=== PATIENT | female | born 1970 | race Caucasian/White ===

== ENCOUNTER 2017-06-27 16:55 | Observation (INO) | payer OTHER ==
[~2017-06-27] VITALS: Ht 157.5 cm; Wt 68.0 kg
[2017-06-27 17:24] VITALS: BP 158/81; PULSE 100; RESP 17; TEMP 98; O2SAT 99
[2017-06-27 18:29] VITALS: O2SAT 98
[2017-06-27] MEDS ORDERED: SODIUM CHLORIDE 0.9% FLUSH 10 ML FLUSH IVF PRN (18:30)
--- NOTE | 2017-06-27 18:42 | PD ---
HPI Chief Complaint: Seizure Time Seen by Provider: 17:54 Travel History International Travel<30 days: No Contact w/Intl Traveler<30days: No Traveled to known affect area: No History of Present Illness HPI This is a 47-year-old female with history of hypertension, presents today with complaints of seizure/new onset. The patient apparently was at the shopping center when she developed a episode of feeling funny. Her mom states that they helped her down to the floor and she started having a generalized tonic-clonic seizure. She did bite her tongue. There is no incontinence. It lasted for what they report up to a minute. There is no previous history of seizure disorder. There is no recent trauma. There is a recent medication changes. The patient reports that she was scheduled to see her primary care doctor for hypertension. There are no other complaints or findings at the time of this dictation. PFSH Past Medical History ?: Not Past Surgical History Hysterectomy: Yes Social History Tobacco Use: No Allergies-Medications (Allergen,Severity, Reaction): Coded Allergies: No Known Allergies (Unverified , 06/27/17) Reported Meds & Prescriptions Reported Meds & Active Scripts Active No Active Prescriptions or Reported Medications Review of Systems Except as stated in HPI: all other systems reviewed are Neg General / Constitutional: No: Fever, Chills HENT: Positive: Other (F lateral anterior tongue laceration from the seizure), No: Headaches, Lightheadedness Cardiovascular: No: Chest Pain or Discomfort, Palpitations Respiratory: No: Cough, Shortness of Breath Gastrointestinal: No: Nausea, Vomiting, Abdominal Pain Genitourinary: No: Dysuria, Incontinence Musculoskeletal: No: Weakness, Pain Neurologic: Positive: Seizures, No: Weakness, Dizziness, Syncope, Headache Physical Exam Narrative GENERAL: Well developed well-nourished female in no acute respiratory distress. SKIN: Focused skin assessment warm/dry. HEAD: Atraumatic. Normocephalic. EYES: No scleral icterus. No injection or drainage. ENT: No nasal bleeding or discharge. Mucous membranes pink and moist. She does have a tongue laceration to her left lateral tongue. NECK: Trachea midline. No JVD. CARDIOVASCULAR: Regular rate and rhythm. No murmur appreciated. RESPIRATORY: No accessory muscle use. Clear to auscultation. Breath sounds equal bilaterally. GASTROINTESTINAL: Abdomen soft, non-tender, nondistended. Hepatic and splenic margins not palpable. MUSCULOSKELETAL: No obvious deformities. No clubbing. No cyanosis. No edema. NEUROLOGICAL: Awake and alert. No obvious cranial nerve deficits. Motor grossly within normal limits. Normal speech. PSYCHIATRIC: Appropriate mood and affect; insight and judgment normal. Data Data Last Documented VS Vital Signs Date Time Temp Pulse Resp B/P (MAP) Pulse Ox O2 Delivery O2 Flow Rate FiO2 06/27/17 19:12 79 16 159/85 (109) 99 Room Air 06/27/17 17:24 98.0 Orders Orders Drug Screen, Random Urine (06/27/17 18:25) Electrocardiogram (06/27/17 ) Ct Brain W/O Iv Contrast(Rout) (06/27/17 ) Blood Glucose (06/27/17 18:25) Ecg Monitoring (06/27/17 18:25) Iv Access Insert/Monitor (06/27/17 18:25) Oximetry (06/27/17 18:25) Comprehensive Metabolic Panel (06/27/17 18:25) Sodium Chloride 0.9% Flush (Ns Flush) (06/27/17 18:30) Ua Includes Microscopic (06/27/17 18:25) Labs Laboratory Tests Test 06/27/17 18:30 06/27/17 18:35 Urine Color YELLOW Urine Turbidity CLEAR Urine pH 5.0 Urine Specific [place] 1.021 Urine Protein TRACE mg/dL Urine Glucose (UA) NEG mg/dL Urine Ketones TRACE mg/dL Urine Occult Blood NEG Urine Nitrite NEG Urine Bilirubin NEG Urine Urobilinogen LESS THAN 2.0 MG/DL Urine Leukocyte Esterase NEG Urine WBC 1 /hpf Urine Squamous Epithelial Cells <1 /hpf Urine Hyaline Casts 1 /lpf Urine Mucus FEW /lpf Urine Opiates Screen NEG Urine Barbiturates Screen NEG Urine Amphetamines Screen NEG Urine Benzodiazepines Screen NEG Urine Cocaine Screen NEG Urine Cannabinoids Screen NEG MDM Medical Decision Making Medical Screen Exam Complete: Yes Emergency Medical Condition: Yes Differential Diagnosis New onset seizure versus atypical migraine versus metabolic derangement. Narrative Course 47-year-old female presents after having a witnessed tonic-clonic seizure. The patient was at this store when she started feeling funny and was helped onto the floor. She'll witnessed tonoclonic seizure. There is no incontinence. There was tongue biting. The patient has no previous seizure history prior to this. She has had one syncopal episode. She has a history of hypertension and is currently not on any medications. Her blood pressure here was on the high normal site however not toxically high. The patient has no focal deficits at this time. Labs and CT are pending this time. She'll be signed out to Dr. Anam Chawla, physician replacing me at change of shift. Disposition will be pending results. I informed her and her that she would be admitted. She'll have a neurology consult. Diagnosis Primary Impression: New onset seizure Scripts No Active Prescriptions or Reported Meds Tyrese العلي MD Jun 27, 2017 18:42
[2017-06-27 19:10] LABS: BILIRUBIN, URINE NEG (NEG); BLOOD, URINE NEG (NEG); GLUCOSE,URINE NEG (NEG); HYALINE CAST, URINE 1 /lpf (RARE); KETONE, URINE TRACE mg/dL (NEG); MUCUS URINE FEW /lpf (OCC); NITRITE,URINE NEG (NEG); SQUAMOUS EPITHELIAL CELL URINE <1 /hpf (0-5); URINE COLOR YELLOW (YELLW/STRAW); URINE LEUKOCYTE ESTERASE NEG (NEG)
[2017-06-27 19:12] VITALS: BP 159/85; PULSE 79; RESP 16; O2SAT 99
[2017-06-27 19:27] LABS: ALBUMIN 3.8 GM/DL (3.4-5.0); ALT (GPT) 24 U/L (10-53); AST (GOT) 22 U/L (15-37); BICARBONATE 24.7 MEQ/L (21.0-32.0); BLOOD UREA NITROGEN 13 MG/DL (7-18); CALCIUM 8.6 MG/DL (8.5-10.1); CHLORIDE 103 MEQ/L (98-107); CREATININE 0.69 MG/DL (0.50-1.00); GLOMERULAR FILTRATION RATE 91 ML/MIN (>89); GLUCOSE,RANDOM 109 MG/DL (74-106); SODIUM (NA) 137 MEQ/L (136-145)
[2017-06-27 19:30] LABS: ALKALINE PHOSPHATASE 73 U/L (45-117); TOTAL BILIRUBIN ADULT 0.3 MG/DL (0.2-1.0)
--- NOTE | 2017-06-27 19:51 | RADRPT ---
EXAM DATE/TIME: 06/27/2017 18:54 [facility] COMPARISON: No previous studies available for comparison. INDICATIONS : Seizure today. RADIATION DOSE: 56.35 CTDIvol (mGy) MEDICAL HISTORY : None SURGICAL HISTORY : Hysterectomy. ENCOUNTER: Initial ACUITY: 1 day PAIN SCALE: 5/10 LOCATION: cranial TECHNIQUE: Multiple contiguous axial images were obtained of the head. Using automated exposure control and adj ustment of the mA and/or kV according to patient size, radiation dose was kept as low as reasonably a chievable to obtain optimal diagnostic quality images. DICOM format image data is available electro nically for review and comparison. FINDINGS: CEREBRUM: The ventricles are normal for age. No evidence of midline shift, mass lesion, hemorrhage or acute in farction. No extra-axial fluid collections are seen. POSTERIOR FOSSA: The cerebellum and brainstem are intact. The 4th ventricle is midline. The cerebellopontine angle i s unremarkable. EXTRACRANIAL: The visualized portion of the orbits is intact. SKULL: The calvaria is intact. No evidence of skull fracture. CONCLUSION: 1. No acute intracranial abnormality. Teja Ramsey MD on June 27, 2017 at 19:48 Board Certified Radiologist. This report was verified electronically.
--- NOTE | 2017-06-27 21:14 | HHI.HP ---
HPI Service [facility] Hospitalists Primary Care Physician Non-Staff Admission Diagnosis seizures Chief Complaint: Seizure, new onset Travel History International Travel<30 Days: No Contact w/Intl Traveler <30 Da: No Traveled to Known Affected Are: No History of Present Illness This is a 47-year-old female with history of hypertension, presents today with complaints of seizure/new onset. The patient apparently was at the shopping center with her mother and young daughter when she developed a episode of feeling funny. Her mom states that they helped her down to the floor and she started having a generalized tonic-clonic seizure. She did bite her tongue. There was no incontinence. It lasted for what they report was up to a minute. There is no previous history of seizure disorder. There is no recent trauma. There is a recent medication changes. The patient reports that she was scheduled to see her primary care doctor for hypertension. There are no other complaints or findings at the time of this dictation. She reports that she was confused about what happened but hard and remembering things and being able to focus when she was in the ambulance. Not remember having the seizure or being transported to the ambulance. She had a neck injury October 20 years ago but no recent head injuries. He never had seizures or similar tremor disorder in the past. No fevers or chills. No rash. No unusual herbal, a medicine intake. She does report that she had had some atypical type chest pain over the last couple of months. She has had EKG and some at least partial workup for this as an outpatient. Was told that it was reflux and it does improve with Zantac. Review of Systems Constitutional: COMPLAINS OF: Fatigue, DENIES: Diaphoretic episodes, Fever, Weight gain, Weight loss, Chills, Dizziness, Change in appetite, Night Sweats Endocrine: DENIES: Abnorml menstrual pattern, Heat/cold intolerance, Polydipsia , Polyuria, Polyphagia Eyes: DENIES: Blurred vision, Diplopia, Eye inflammation, Eye pain, Vision loss , Photosensitivity, Double Vision Ears, nose, mouth, throat: DENIES: Tinnitus, Hearing loss, Vertigo, Nasal discharge, Oral lesions, Throat pain, Hoarseness, Ear Pain, Running Nose, Epistaxis, Sinus Pain, Toothache, Odynophagia Respiratory: DENIES: Apneas, Cough, Snoring, Wheezing, Hemoptysis, Sputum production, Shortness of breath Cardiovascular: COMPLAINS OF: Chest pain, DENIES: Palpitations, Syncope, Dyspnea on Exertion, PND, Lower Extremity Edema, Orthopnea, Claudication Gastrointestinal: COMPLAINS OF: GERD, Reflux, DENIES: Abdominal pain, Black stools, Bloody stools, BRB per rectum, Constipation, Diarrhea, Nausea, Vomiting , Difficulty Swallowing, Anorexia, See HPI Musculoskeletal: DENIES: Joint pain, Muscle aches, Stiffness, Joint Swelling, Back pain, Neck pain Integumentary: DENIES: Abnormal pigmentation, Pruritus, Rash, Nail changes, Breast masses, Breast skin changes, Nipple discharge Hematologic/lymphatic: DENIES: Bruising, Lymphadenopathy Immunologic/allergic: DENIES: Eczema, Urticaria Neurologic: COMPLAINS OF: Seizures, DENIES: Abnormal gait, Headache, Localized weakness, Paresthesias, Speech Problems, Tremor, Poor Balance Psychiatric: DENIES: Anxiety, Confusion, Mood changes, Depression, Hallucinations, Agitation, Suicidal Ideation, Homicidal Ideation, Delusions, History of Bipolar, History of Schizophrenia Past Family Social History Past Medical History Hypertension Distant history of neck injury History of placenta accreta 2. Past Surgical History 2 Hysterectomy Tonsillectomy and adenoidectomy C5/6 cervical fusion approximately 25 years ago Reported Medications None regularly Allergies: Coded Allergies: No Known Allergies (Unverified , 06/27/17) Family History No seizure disorder or history of movement disorder Social History Denies tobacco use. 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 SKIN: Abrasion right elbow with tenderness to palpation and mild edema HEAD: Atraumatic. Normocephalic. No temporal or scalp tenderness. EYES: Pupils equal round and reactive. Extraocular motions intact. No scleral icterus. No injection or drainage. ENT: Nose without bleeding, purulent drainage or septal hematoma. Airway patent. NECK: Trachea midline. No JVD or lymphadenopathy. Supple, nontender, no meningeal signs. CARDIOVASCULAR: Regular rate and rhythm without murmurs, gallops, or rubs. RESPIRATORY: Clear to auscultation. Breath sounds equal bilaterally. No wheezes , rales, or rhonchi. GASTROINTESTINAL: Abdomen soft, non-tender, nondistended. No hepato-splenomegaly , or palpable masses. No guarding. Bowel sounds normal. MUSCULOSKELETAL: Extremities without clubbing, cyanosis, or edema. Right elbow with mild edema and apparent abrasion with good range of motion. No calf tenderness. NEUROLOGICAL: Awake and alert. Cranial nerves II through XII intact. Motor and sensory grossly within normal limits. Five out of 5 muscle strength in all muscle groups. Normal speech. Laboratory Laboratory Tests Test 06/27/17 18:30 06/27/17 18:35 Blood Urea Nitrogen 13 Creatinine 0.69 Random Glucose 109 Total Protein 7.0 Albumin 3.8 Calcium Level 8.6 Alkaline Phosphatase 73 Aspartate Amino Transf (AST/SGOT) 22 Alanine Aminotransferase (ALT/SGPT) 24 Total Bilirubin 0.3 Sodium Level 137 Potassium Level 3.4 Chloride Level 103 Carbon Dioxide Level 24.7 Anion Gap 9 Estimat Glomerular Filtration Rate 91 Urine Color YELLOW Urine Turbidity CLEAR Urine pH 5.0 Urine Specific [place] 1.021 Urine Protein TRACE Urine Glucose (UA) NEG Urine Ketones TRACE Urine Occult Blood NEG Urine Nitrite NEG Urine Bilirubin NEG Urine Urobilinogen LESS THAN 2.0 Urine Leukocyte Esterase NEG Urine WBC 1 Urine Squamous Epithelial Cells <1 Urine Hyaline Casts 1 Urine Mucus FEW Urine Opiates Screen NEG Urine Barbiturates Screen NEG Urine Amphetamines Screen NEG Urine Benzodiazepines Screen NEG Urine Cocaine Screen NEG Urine Cannabinoids Screen NEG Result Diagram: 06/27/17 1830 Imaging Last [address] 06/27/17 0000 Signed Impressions: Service Date/Time: Tuesday, June 27, 2017 18:54 - CONCLUSION: 1. No acute intracranial abnormality. MD Dean Gregg VTE Risk Assessment Dean VTE Risk Assessment: No/Low Risk (score <= 1) Caprini Risk Assessment Model Point Value = 1 Point Value = 2 Point Value = 3 Point Value = 5 Age 41-60 Minor surgery BMI > 25 kg/m2 Swollen legs Varicose veins or History of unexplained or recurrent spontaneous Oral contraceptives or hormone replacement Sepsis (< 1 month) Serious lung disease, including pneumonia (< 1 month) Abnormal pulmonary function Acute myocardial infarction Congestive heart failure (< 1 month) History of inflammatory bowel disease Medical patient at bed rest Age 61-74 Arthroscopic surgery Major open surgery (> 45 min) Laparoscopic surgery (> 45 min) Malignancy Confined to bed (> 72 hours) Immobilizing plaster cast Central venous access Age >= 75 History of VTE Family history of VTE Factor V Leiden Prothrombin [id number] Lupus anticoagulant Anticardiolipin antibodies Elevated serum homocysteine Heparin-induced thrombocytopenia Other congenital or acquired thrombophilia Stroke (< 1 month) Elective arthroplasty Hip, pelvis, or leg fracture Acute spinal cord injury (< 1 month) Prophylaxis Regimen Total Risk Factor Score Risk Level Prophylaxis Regimen 0-1 Low Early ambulation 2 Moderate Order ONE of the following: *Sequential Compression Device (SCD) *Heparin 5000 units SQ BID 3-4 Higher Order ONE of the following medications: *Heparin 5000 units SQ TID *Enoxaparin/Lovenox 40 mg SQ daily (WT < 150 kg, CrCl > 30 mL/min) *Enoxaparin/Lovenox 30 mg SQ daily (WT < 150 kg, CrCl > 10-29 mL/min) *Enoxaparin/Lovenox 30 mg SQ BID (WT < 150 kg, CrCl > 30 mL/min) AND/OR *Sequential Compression Device (SCD) 5 or more Highest Order ONE of the following medications: *Heparin 5000 units SQ TID (Preferred with Epidurals) *Enoxaparin/Lovenox 40 mg SQ daily (WT < 150 kg, CrCl > 30 mL/min) *Enoxaparin/Lovenox 30 mg SQ daily (WT < 150 kg, CrCl > 10-29 mL/min) *Enoxaparin/Lovenox 30 mg SQ BID (WT < 150 kg, CrCl > 30 mL/min) AND *Sequential Compression Device (SCD) Assessment and Plan Problem List: (1) New onset seizure ICD Codes: R56.9 - Unspecified convulsions Status: Acute Plan: Will order EEG and MRI. Neuro consult. Check x-ray right elbow given tenderness, abrasion and likely trauma during her seizure. (2) Hypertension ICD Codes: I10 - Essential (primary) hypertension Status: Chronic Plan: Has been trying to manage with diet. May need meds in the future. Outpatient management. Code Status full Discussed Condition With Patient and ER provider Problem Qualifiers (1) Hypertension: Qualified Codes: I10 - Essential (primary) hypertension Reese Castro MD PhD Jun 27, 2017 21:14
[2017-06-27] MEDS ORDERED: SODIUM CHLORIDE 0.9% FLUSH 10 ML FLUSH IV FLUSH PRN (21:15)
[2017-06-27] MEDS ORDERED: ONDANSETRON HCL 4 MG/2 ML VIAL IV PUSH PRN (21:15)
--- NOTE | 2017-06-27 21:57 | PD ---
Data Data Last Documented VS Vital Signs Date Time Temp Pulse Resp B/P (MAP) Pulse Ox O2 Delivery O2 Flow Rate FiO2 06/27/17 19:12 79 16 159/85 (109) 99 Room Air 06/27/17 17:24 98.0 Orders Orders Drug Screen, Random Urine (06/27/17 18:25) Electrocardiogram (06/27/17 ) Ct Brain W/O Iv Contrast(Rout) (06/27/17 ) Blood Glucose (06/27/17 18:25) Ecg Monitoring (06/27/17 18:25) Iv Access Insert/Monitor (06/27/17 18:25) Oximetry (06/27/17 18:25) Comprehensive Metabolic Panel (06/27/17 18:25) Sodium Chloride 0.9% Flush (Ns Flush) (06/27/17 18:30) Ua Includes Microscopic (06/27/17 18:25) Admit Order (Ed Use Only) (06/27/17 ) Labs Laboratory Tests Test 06/27/17 18:30 06/27/17 18:35 Blood Urea Nitrogen 13 MG/DL Creatinine 0.69 MG/DL Random Glucose 109 MG/DL Total Protein 7.0 GM/DL Albumin 3.8 GM/DL Calcium Level 8.6 MG/DL Alkaline Phosphatase 73 U/L Aspartate Amino Transf (AST/SGOT) 22 U/L Alanine Aminotransferase (ALT/SGPT) 24 U/L Total Bilirubin 0.3 MG/DL Sodium Level 137 MEQ/L Potassium Level 3.4 MEQ/L Chloride Level 103 MEQ/L Carbon Dioxide Level 24.7 MEQ/L Anion Gap 9 MEQ/L Estimat Glomerular Filtration Rate 91 ML/MIN C-Reactive Protein LESS THAN 0.29 MG/DL Urine Color YELLOW Urine Turbidity CLEAR Urine pH 5.0 Urine Specific [place] 1.021 Urine Protein TRACE mg/dL Urine Glucose (UA) NEG mg/dL Urine Ketones TRACE mg/dL Urine Occult Blood NEG Urine Nitrite NEG Urine Bilirubin NEG Urine Urobilinogen LESS THAN 2.0 MG/DL Urine Leukocyte Esterase NEG Urine WBC 1 /hpf Urine Squamous Epithelial Cells <1 /hpf Urine Hyaline Casts 1 /lpf Urine Mucus FEW /lpf Urine Opiates Screen NEG Urine Barbiturates Screen NEG Urine Amphetamines Screen NEG Urine Benzodiazepines Screen NEG Urine Cocaine Screen NEG Urine Cannabinoids Screen NEG MDM Supervised Visit with KAI: Yes Narrative Course Patient new onset seizure disorder, signed out to me by Dr. العلي. Initial workup unremarkable. Recommended for admission for further evaluation. Diagnosis Primary Impression: New onset seizure Scripts No Active Prescriptions or Reported Meds Anam Chawla MD Jun 27, 2017 21:57
--- NOTE | 2017-06-27 22:04 | RADRPT ---
EXAM DATE/TIME: 06/27/2017 21:28 [facility] COMPARISON: No previous studies available for comparison. INDICATIONS : Right elbow pain post fall today MEDICAL HISTORY : None. SURGICAL HISTORY : None. ENCOUNTER: Initial ACUITY: 1 day PAIN SCORE: 5/10 LOCATION: Right posterior elbow FINDINGS: Multiple view examination of the right elbow demonstrates no soft tissue swelling, joint effusion, or fracture. The osseous structures are in normal alignment. Bony mineralization is normal. CONCLUSION: 1. No acute fracture or dislocation. Teja Ramsey MD on June 27, 2017 at 22:02 Board Certified Radiologist. This report was verified electronically.
--- NOTE | 2017-06-27 22:13 | RADRPT ---
EXAM DATE/TIME: 06/27/2017 21:40 [facility] COMPARISON: No previous studies available for comparison. INDICATIONS : Seizures. MEDICAL HISTORY : Hypertension. SURGICAL HISTORY : Fusion, cervical. Hysterectomy. Tonsillectomy. . ENCOUNTER: Initial ACUITY: 1 day PAIN SCORE: 3/10 LOCATION: Bilateral cranial TECHNIQUE: Multiplanar, multisequence MRI of the brain was performed without contrast. FINDINGS: CEREBRUM: The ventricles are normal for age. No evidence of midline shift, mass lesion, hemorrha ge or acute infarction. No extraaxial fluid collections are seen. The pituitary gland and suprasell ar cistern are normal in configuration. Medial temporal lobes are symmetrical in appearance. WHITE MATTER: Minimal ventricular and focal right frontal white matter T2 prolongation. POSTERIOR FOSSA: The cerebellum and brainstem are intact. The 4th ventricle is midline. The cere bellopontine angle is unremarkable. The cerebellar tonsils are normal in position. DIFFUSION IMAGING: No focal areas of restricted diffusion are seen. No evidence of acute infarct ion. EXTRACRANIAL: The visualized portions of the orbits and paranasal sinuses are unremarkable. CONCLUSION: 1. Minimal periventricular and focal right frontal small vessel ischemic white matter demyelination. 2. Otherwise, unremarkable MRI examination of the brain. Teja Ramsey MD on June 27, 2017 at 22:09 Board Certified Radiologist. This report was verified electronically.
[2017-06-27 22:19] VITALS: BP 154/88; PULSE 76; RESP 18; TEMP 98.2; O2SAT 98
[2017-06-28 01:28] VITALS: BP 152/86; PULSE 67; RESP 16; TEMP 98.3; O2SAT 98
[2017-06-28 04:21] VITALS: BP 148/79; PULSE 70; RESP 16; TEMP 98.4; O2SAT 99
[2017-06-28 05:42] LABS: AUTOMATED NEUTROPHIL # 6.2 TH/MM3 (1.8-7.7); BASOPHIL % 0.3 % (0.0-2.0); EOSINOPHIL # 0.2 TH/MM3 (0-0.4); HEMATOCRIT 39.5 % (35.0-46.0); HEMOGLOBIN 12.9 GM/DL (11.6-15.3); LYMPH % 24.8 % (9.0-44.0); LYMPHOCYTE # 2.4 TH/MM3 (1.0-4.8); MEAN CELL VOLUME 92.8 FL (80.0-100.0); MEAN CORPUSCULAR HEMOGLOBIN 30.4 PG (27.0-34.0); MEAN CORPUSCULAR HGB CONC 32.8 % (32.0-36.0); MEAN PLATELET VOLUME 8.3 FL (7.0-11.0); MONO % 7.5 % (0.0-8.0); MONOCYTE # 0.7 TH/MM3 (0-0.9); NEUT % 65.4 % (16.0-70.0); PLATELET COUNT 245 TH/MM3 (150-450); RED BLOOD COUNT 4.25 MIL/MM3 (4.00-5.30); RED CELL DISTRIBUTION WIDTH 13.2 % (11.6-17.2); WHITE BLOOD COUNT 9.5 TH/MM3 (4.0-11.0)
[2017-06-28 07:49] VITALS: BP 130/76; PULSE 67; RESP 19; TEMP 98; O2SAT 99
[2017-06-28] MEDS ORDERED: SODIUM CHLORIDE 0.9% FLUSH 10 ML FLUSH IV FLUSH SCH (09:00)
[2017-06-28] MEDS ORDERED: POTASSIUM CHLORIDE 20 MEQ CONTROLLED RELEASE TAB PO ONE (09:45)
--- NOTE | 2017-06-28 10:48 | HHI.PR ---
Subjective Remarks No acute events overnight No further seizure activity Objective Vitals Vital Signs Date Time Temp Pulse Resp B/P (MAP) Pulse Ox O2 Delivery O2 Flow Rate FiO2 06/28/17 07:49 98.0 67 19 130/76 (94) 99 06/28/17 04:21 98.4 70 16 148/79 (102) 99 06/28/17 01:28 98.3 67 16 152/86 (108) 98 06/27/17 22:19 98.2 76 18 154/88 (110) 98 06/27/17 22:00 06/27/17 19:12 79 16 159/85 (109) 99 Room Air 06/27/17 18:29 98 Room Air 06/27/17 17:24 98.0 100 17 158/81 (106) 99 Result Diagram: 06/28/17 0420 06/27/17 1830 Other Results Laboratory Tests Test 06/27/17 18:30 06/27/17 18:35 06/28/17 04:20 Blood Urea Nitrogen 13 MG/DL Creatinine 0.69 MG/DL Random Glucose 109 MG/DL Total Protein 7.0 GM/DL Albumin 3.8 GM/DL Calcium Level 8.6 MG/DL Alkaline Phosphatase 73 U/L Aspartate Amino Transf (AST/SGOT) 22 U/L Alanine Aminotransferase (ALT/SGPT) 24 U/L Total Bilirubin 0.3 MG/DL Sodium Level 137 MEQ/L Potassium Level 3.4 MEQ/L Chloride Level 103 MEQ/L Carbon Dioxide Level 24.7 MEQ/L Anion Gap 9 MEQ/L Estimat Glomerular Filtration Rate 91 ML/MIN C-Reactive Protein LESS THAN 0.29 MG/DL Urine Color YELLOW Urine Turbidity CLEAR Urine pH 5.0 Urine Specific [place] 1.021 Urine Protein TRACE mg/dL Urine Glucose (UA) NEG mg/dL Urine Ketones TRACE mg/dL Urine Occult Blood NEG Urine Nitrite NEG Urine Bilirubin NEG Urine Urobilinogen LESS THAN 2.0 MG/DL Urine Leukocyte Esterase NEG Urine WBC 1 /hpf Urine Squamous Epithelial Cells <1 /hpf Urine Hyaline Casts 1 /lpf Urine Mucus FEW /lpf Urine Opiates Screen NEG Urine Barbiturates Screen NEG Urine Amphetamines Screen NEG Urine Benzodiazepines Screen NEG Urine Cocaine Screen NEG Urine Cannabinoids Screen NEG White Blood Count 9.5 TH/MM3 Red Blood Count 4.25 MIL/MM3 Hemoglobin 12.9 GM/DL Hematocrit 39.5 % Mean Corpuscular Volume 92.8 FL Mean Corpuscular Hemoglobin 30.4 PG Mean Corpuscular Hemoglobin Concent 32.8 % Red Cell Distribution Width 13.2 % Platelet Count 245 TH/MM3 Mean Platelet Volume 8.3 FL Neutrophils (%) (Auto) 65.4 % Lymphocytes (%) (Auto) 24.8 % Monocytes (%) (Auto) 7.5 % Eosinophils (%) (Auto) 2.0 % Basophils (%) (Auto) 0.3 % Neutrophils # (Auto) 6.2 TH/MM3 Lymphocytes # (Auto) 2.4 TH/MM3 Monocytes # (Auto) 0.7 TH/MM3 Eosinophils # (Auto) 0.2 TH/MM3 Basophils # (Auto) 0.0 TH/MM3 CBC Comment DIFF FINAL Differential Comment Imaging Last Impressions Head CT 06/27/17 0000 Signed Impressions: Service Date/Time: Tuesday, June 27, 2017 18:54 - CONCLUSION: 1. No acute intracranial abnormality. Teja Ramsey MD Elbow X-Ray 06/27/17 0000 Signed Impressions: Service Date/Time: Tuesday, June 27, 2017 21:28 - CONCLUSION: 1. No acute fracture or dislocation. Teja Ramsey MD Brain MRI 06/27/17 0000 Signed Impressions: Service Date/Time: Tuesday, June 27, 2017 21:40 - CONCLUSION: 1. Minimal periventricular and focal right frontal small vessel ischemic white matter demyelination. 2. Otherwise, unremarkable MRI examination of the brain. Teja Ramsey MD Last [address] 06/27/17 0000 Signed Impressions: Service Date/Time: Tuesday, June 27, 2017 18:54 - CONCLUSION: 1. No acute intracranial abnormality. Teja Ramsey MD Objective Remarks General: NAD, AAOx3 Chest: CTA bilaterally Cardiac: Regular Abd: +BS, soft ND/NT Ext: No edema A/P Problem List: (1) New onset seizure ICD Codes: R56.9 - Unspecified convulsions Status: Acute Plan: - Pt is a 47 y/o female with history of hypertension, who presented to the ED after a new onset seizure. The patient apparently was at [employer] with her mother and young daughter when she developed a episode of feeling like she was going to faint and experienced tunnel vision. She sat down to the floor and family reports that she started having a generalized tonic-clonic seizure. She did bite her tongue and the sides of her cheeks. There was no incontinence. Pt was reportedly post-ictal after the seizure in the ambulance. New onset seizure - There is no previous history of seizure disorder, no recent trauma, no recent medication changes. - Pt has had cold symptoms with cough and congestion for about 1 month, she has been taking Sudafed as needed. Pt did take the Sudafed (two tablets) yesterday morning but this is not a new medication. - No fevers or chills. No rash. No herbal medicine taken. - Pt reports a remote history of being diagnosed with MS in her late 20's. She states that she was initially diagnosed with optic neuritis and was following with a neurologist in [place], [place] who diagnosed her with MS based on imaging with reported "brain lesions." She was treated with Avenox for about 8 or so years and when she moved to [place] she re-established with a Neurologist there who reviewed her previous workup and did additional testing and felt that she did not have MS and was taken off the Avenox. - MRI Brain (06/27) --> Minimal periventricular and focal right frontal small vessel ischemic white matter demyelination. Otherwise, unremarkable MRI examination of the brain. - EEG is pending - Neurology consultation is pending. - X-ray of right elbow without any noted fracture or dislocation and likely trauma during her seizure. - Await Neurology evaluation and recommendations - Seizure precautions - Supportive care HTN - Has been trying to manage with diet. - Pt may need meds in the future. - Outpatient management. (2) Hypertension ICD Codes: I10 - Essential (primary) hypertension Status: Chronic Assessment and Plan Patient examined. Assessment and plan formulated with Peggy Pham PA-C. I agree with the above. sound like new seizure with post ictal state. considered convulsive syncope but pt did have post ictal phase doing ok Has had persistent sinus congestion and drainage for over a month. not improving. some bloody nasal d/c. will give short abx course and nasal sprays for possible sinusitis...pt agrees.. I reviewed ct/mri sinusimages which looked ok. await neurology consult and d/c when ok. Problem Qualifiers (1) Hypertension: Qualified Codes: I10 - Essential (primary) hypertension Peggy Pham Jun 28, 2017 10:48 Rubens Oviedo MD Jun 28, 2017 14:03
--- NOTE | 2017-06-28 14:43 | MG ---
cc: CHIQUI MORALEZ M.D. Lab No: [id number] Date: 06/28/2017 Age: 47 Sex: F Race: DATE OF : [address] Castro. Room F67. Hyperventilation and photic done, awake, drowsy asleep study. MRI shows minimal periventricular and focal right frontal small vessel disease. Admitted for new-onset seizures, episode of feeling funny, history of hypertension, alcohol use, fatigue, on Zofran. DESCRIPTION OF RECORD The patient has a background rhythm of 8, 8-1/2 Hz, 20-40 microvolts, symmetrical. Photic stimulation elicits a posterior driving response. Overall fairly well-organized background. Hyperventilation was then performed, some artifact but overall there is no attenuation, background remains symmetrical. Normal alpha rhythm. IMPRESSION Overall normal-appearing EEG without any epileptic activity noted in this one recording with epilepsy still a consideration, prolonged EEG monitoring may be indicated as outpatient. MD REJI Woodruff/HUANG /1:13 PM /2:20 PM
[2017-06-28] MEDS ORDERED: Amoxicil-Clavulanate PO (15:27)
--- NOTE | 2017-06-28 15:27 | HHI.DCPOC ---
Discharge Care Plan Diagnosis: (1) New onset seizure Goals to Promote Your Health * To prevent worsening of your condition and complications * To maintain your health at the optimal level Directions to Meet Your Goals Take your medications as prescribed Follow your dietary instruction Follow activity as directed Keep your appointments as scheduled Take your immunizations and boosters as scheduled If your symptoms worsen call your PCP, if no PCP go to Urgent Care Center or Emergency Room Smoking is Dangerous to Your Health. Avoid second hand smoke Call the 24-hour hour crisis hotline for domestic abuse at Rubens Oviedo MD Jun 28, 2017 15:27
[2017-06-28] MEDS ORDERED: AMOXICILLIN/CLAVULANATE K 500 MG TAB PO SCH (15:30)
--- NOTE | 2017-06-28 16:33 | MB ---
cc: ANGELA LAN DATE OF CONSULTATION: 06/28/2017 REASON FOR CONSULTATION Seizure. HISTORY OF PRESENT ILLNESS Ms. Malhotra is a very pleasant 47-year-old female, previously healthy until yesterday, had a grand mal seizure where she felt her vision closing in on her, then passed out, was noted to have jerking activity diffusely with arching, lasting several minutes, after which she was postictal, confused and combative. She feels back to normal at the present time. There is no prior history of seizures. PAST MEDICAL HISTORY 1. History of optic neuritis. 2. There was a question of multiple sclerosis but this was never confirmed. She was on Avonex for 5 years and came off of it with no other neurologic complaints. 3. History of hypertension. 4. Cervical spine fusion 25 years ago. 5. Tonsillectomy and adenoidectomy. 6. Hysterectomy. MEDICATIONS AT HOME She is taking [id number] pseudoephedrine for sinus congestion. ALLERGIES None known. SOCIAL HISTORY She drinks alcohol occasionally. FAMILY HISTORY Noncontributory. No history of seizures. NEUROLOGIC EXAMINATION VITAL SIGNS: Blood pressure is 130/76, pulse 67, respirations 19, temperature 98 degrees. Higher cortical functions are normal. Cranial nerves intact. Motor exam 5/5 strength of all groups. There is no drift. Reflexes are symmetric. IMAGING STUDIES MRI of the brain showed a nonspecific area of increased signal in the right frontal lobe white matter, otherwise normal. CT of the brain is normal. EEG Normal. LABORATORY DATA White count 9500, hemoglobin 12.9, hematocrit 39%, platelet count 245,000. Sodium is 137, potassium 3.4, chloride 103, CO2 24.7, BUN is 13, creatinine 0.69, GFR is 91, glucose 109, AST 22, ALT 24. C-reactive protein less than 0.29. Tox screen negative. Urinalysis specific gravity 1.021. IMPRESSION Isolated seizure of unknown cause. RECOMMENDATIONS I would not recommend anticonvulsants given the normal EEG and MRI of the brain. I did recommend that she avoid pseudoephedrine and [id number] cold preparations, also avoid driving for 6 months. The patient is stable for discharge to home. Follow up with me in [id number] weeks. Incidentally, I do not believe the patient has multiple sclerosis. The MRI is not consistent with this and she has no clinical history supportive of this diagnosis. She did have isolated optic neuritis at age 28. MD GUANACO Ghotra/HUANG /3:13 PM /3:40 PM
--- NOTE | 2017-06-28 23:05 | EKG ---
Date Performed: 06/27/2017 Time Performed: 18:48:32 PTAGE: 47 years EKG: Sinus rhythm WITH SHORT CA INTERVAL BORDERLINE ECG NO PREVIOUS TRACING DOCTOR: Reece Hannah Interpretating Date/Time 06/28/2017 23:04:57
== END 2017-06-28 16:04 | disposition home or self-care (01) ==
LOC: NEPC 16:55 → NEDA 20:55 → NEPFCDU 22:09
PROVIDERS: ADMIT Hospitalist; ATTEND Hospitalist
DX: R56.9 Unspecified convulsions (principal); I10 Essential (primary) hypertension; R55 Syncope and collapse; R07.9 Chest pain, unspecified; K21.9 Gastro-esophageal reflux disease without esophagitis; M25.521 Pain in right elbow; H46.9 Unspecified optic neuritis; Z98.1 Arthrodesis status
CPT/HCPCS: 70450; 70551; 73080; 80053; 80307; 81001; 85025; 86140; 93005; 95819; 99285; G0378